=== PATIENT | female | born 1995 | race Caucasian/White ===

== ENCOUNTER 2017-09-15 18:01 | Inpatient (IN) | payer OTHER ==
[~2017-09-15] VITALS: Ht 167.6 cm; Wt 72.6 kg
[2017-09-15] MEDS ORDERED: PRENATAL TABLE1 EAC1 PO (18:12)
== END 2017-09-18 14:16 | disposition home or self-care (01) | DRG 775 ==
LOC: LDR 18:01 → OB/GYN 18:01
PROC: 10E0XZZ Delivery of Products of Conception, External Approach (ICD-10-PCS; principal; 2017-09-16)
PROC: 10907ZC Drainage of Amniotic Fluid, Therapeutic from Products of Conception, Via Natural or Artificial Opening (ICD-10-PCS; 2017-09-16)
PROC: 4A033R1 Measurement of Arterial Saturation, Peripheral, Percutaneous Approach (ICD-10-PCS; 2017-09-16)
PROC: 4A1HXCZ Monitoring of Products of Conception, Cardiac Rate, External Approach (ICD-10-PCS; 2017-09-16)
DX: O80 Encounter for full-term uncomplicated delivery (principal); Z3A.39 39 weeks gestation of pregnancy; Z37.0 Single live birth; Z22.330 Carrier of Group B streptococcus

== ENCOUNTER 2019-11-25 14:30 | Inpatient (IN) | payer OTHER ==
[~2019-11-25] VITALS: Ht 162.6 cm; Wt 75.3 kg
[~2019-11-25 14:30] MED LIST: PRENATAL TABLE1 EAC1 PO
== END 2019-12-10 15:30 | disposition home or self-care (01) | DRG 798 ==
LOC: OB/GYN 12-06 14:30 → LDR 12-08 12:30 → OB/GYN 12-08 12:31 → LDR 12-08 13:52 → OB/GYN 12-08 18:05
PROVIDERS: ADMIT Obstetrics & Gynecology; ATTEND Obstetrics & Gynecology
PROC: 10E0XZZ Delivery of Products of Conception, External Approach (ICD-10-PCS; principal; 2019-12-08)
PROC: 0UB70ZZ Excision of Bilateral Fallopian Tubes, Open Approach (ICD-10-PCS; 2019-12-08)
PROC: 4A1HXFZ Monitoring of Products of Conception, Cardiac Rhythm, External Approach (ICD-10-PCS; 2019-12-08)
DX: O80 Encounter for full-term uncomplicated delivery (principal); Z37.0 Single live birth; Z30.2 Encounter for sterilization; Z20.828 Contact with and (suspected) exposure to other viral communicable diseases; Z3A.39 39 weeks gestation of pregnancy